=== PATIENT | female | born 1990 ===

== ENCOUNTER → 2018-09-27 | Outpatient (CLI) | payer MEDICAID ==
[~2018-09-27] MED LIST: INSU100V13 SQ; INSU100V14 SQ; LIRA0.6P SC
[2018-09-27 10:35] LABS: BASOPHILS # (AUTO) 0.03 x10^3/uL (0-0.1); BASOPHILS % (AUTO) 1 % (0-1); EOSINOPHILS # (AUTO) 0.07 x10^3/uL (0-0.4); EOSINOPHILS % (AUTO) 1 % (1-7); LYMPHOCYTES % (AUTO) 26 % (22-44); MD NO; MEAN CORPUSCULAR HEMOGLOBIN 27.2 pg (27.0-34.8); MEAN CORPUSCULAR HGB CONC 33.1 g/dL (32.4-35.8); MEAN CORPUSCULAR VOLUME 82.3 fL (80-100); MEAN PLATELET VOLUME 7.2 fL (7.4-10.4); MONOCYTES % (AUTO) 5 % (2-9); NEUTROPHILS # (AUTO) 4.89 x10^3/uL (1.8-6.8); NEUTROPHILS % (AUTO) 67 % (42-75); PLATELET COUNT 374 x10^3/uL (130-400); RED BLOOD COUNT 4.72 x10^6/uL (3.82-5.3); RED CELL DISTRIBUTION WIDTH 13.8 % (9.6-15.2)
[2018-09-27 10:47] LABS: CHLORIDE 105 mmol/L (98-107); INTERNATIONAL NORMALIZED RATIO 0.95 (0.93-1.1); PROTHROMBIN TIME 10.1 Seconds (9.6-11.5)
[2018-09-27 10:57] LABS: ALANINE AMINOTRANSFERASE 43 U/L (12-78); ALBUMIN 3.8 g/dL (3.4-5.0); ALKALINE PHOSPHATASE 76 U/L (45-117); ANION GAP 8 mmol/L (5-15); BILIRUBIN,TOTAL 0.3 mg/dL (0.2-1.0); CALCIUM 8.7 mg/dL (8.5-10.1); CREATININE 0.71 mg/dL (0.55-1.02); TOTAL PROTEIN 7.8 g/dL (6.4-8.2)
== END | disposition home or self-care (01) ==
LOC: STAR 09:40
PROVIDERS: ATTEND Specialist
DX: Z01.818 Encounter for other preprocedural examination (principal); N83.209 Unspecified ovarian cyst, unspecified side; R19.07 Generalized intra-abdominal and pelvic swelling, mass and lump
CPT/HCPCS: 36415; 80053; 84703; 85025; 85610; 85730; 86304; 93005

== ENCOUNTER 2018-10-02 05:54 | Day surgery (SDC) | payer MEDICAID ==
[~2018-10-02] VITALS: Ht 165.1 cm; Wt 76.7 kg
[2018-10-02 07:00] VITALS: BP 125/61
[2018-10-02] MEDS ORDERED: EPINEPHRINE 1 MG/ML, 1ML ONE (07:02)
[2018-10-02] MEDS ORDERED: BUPIVACAINE/PF 0.25% ONE (07:02)
[2018-10-02] MEDS ORDERED: MIDAZOLAM 1 MG/ML, 2ML ONE (07:24)
[2018-10-02] MEDS ORDERED: FENTANYL PF 250 MCG/5ML ONE (07:24)
[2018-10-02] MEDS ORDERED: ROCURONIUM 10MG/ML,5ML ONE (07:25)
[2018-10-02] MEDS ORDERED: SUCCINYLCHOLINE 20 MG/ML, 10ML ONE (07:25)
[2018-10-02] MEDS ORDERED: PROPOFOL 10 MG/ML, 20ML ONE (07:27)
[2018-10-02 07:30] LABS: HCG UR SG 1.016 (1.003-1.030)
[2018-10-02] MEDS ORDERED: ACETAMINOPHEN 500 MG TABLET PO ONE (07:30)
[2018-10-02] MEDS ORDERED: SCOPOLAMINE PATCH, 1.5MG PATCH.TD72 TD ONE (07:30)
[2018-10-02] MEDS ORDERED: ONDANSETRON 2MG/ML, 2ML ONE (07:54)
[2018-10-02] MEDS ORDERED: CEFAZOLIN 1,000 MG ONE (07:54)
[2018-10-02] MEDS ORDERED: GLYCOPYRROLATE 0.2MG/1ML, 5ML ONE (07:54)
[2018-10-02] MEDS ORDERED: DEXAMETHASONE 4 MG/ML, 1ML ONE (07:54)
[2018-10-02] MEDS ORDERED: KETOROLAC 30 MG/1 ML ONE (07:54)
[2018-10-02] MEDS ORDERED: NEOSTIGMINE 1 MG/ML, 10ML ONE (08:57)
[2018-10-02] MEDS ORDERED: ONDANSETRON 2MG/ML, 2ML IV PRN (09:00)
[2018-10-02] MEDS ORDERED: MORPHINE SULFATE 4 MG/ML, 1ML IVPush PRN (09:00)
[2018-10-02] MEDS ORDERED: OXYcodone 5 MG/5 ML ORAL.SOL UDC PO PRN (09:00)
[2018-10-02] MEDS ORDERED: MEPERIDINE/PF 25MG/0.5ML IVPush PRN (09:00)
[2018-10-02] MEDS ORDERED: hydrALAzine 20 MG/ML, 1ML IV PRN (09:00)
[2018-10-02] MEDS ORDERED: HALOPERIDOL 5 MG/ML IV PRN (09:00)
[2018-10-02] MEDS ORDERED: FENTANYL PF 100 MCG/2ML IV PRN (09:00)
[2018-10-02] MEDS ORDERED: LABETALOL 5MG/ML, 20ML IV PRN (09:00)
[2018-10-02] MEDS ORDERED: DIAZEPAM 5 MG/ML, 2ML IVPush PRN (09:00)
[2018-10-02] MEDS ORDERED: PROMETHAZINE 25 MG SUPP PR PRN (09:00)
[2018-10-02] MEDS ORDERED: ALBUTEROL SULFATE 2.5 MG/3 ML NPPB PRN (09:00)
[2018-10-02] MEDS ORDERED: MIDAZOLAM 1 MG/ML, 2ML IV PRN (09:00)
[2018-10-02] MEDS ORDERED: HYDROmorphone 2 MG/ML, 1ML IVPush PRN (09:00)
[2018-10-02] MEDS ORDERED: PROMETHAZINE 25 MG/ML, 1ML IM PRN (09:00)
[2018-10-02] MEDS ORDERED: ONDANSETRON ODT 8 MG PO PRN (09:00)
[2018-10-02] MEDS ORDERED: EPHEDRINE 50 MG/ML, 1ML IVPush PRN (09:00)
[2018-10-02] MEDS ORDERED: OXYcodone 5 MG/5 ML ORAL.SOL UDC ONE (09:14)
[2018-10-02] MEDS ORDERED: FENTANYL PF 100 MCG/2ML ONE (09:14)
== END 2018-10-02 11:20 | disposition home or self-care (01) ==
LOC: OUT 05:54
PROVIDERS: ATTEND Specialist
DX: D27.0 Benign neoplasm of right ovary (principal); I10 Essential (primary) hypertension; E11.9 Type 2 diabetes mellitus without complications; E66.9 Obesity, unspecified; Z68.28 Body mass index [BMI] 28.0-28.9, adult; Z79.84 Long term (current) use of oral hypoglycemic drugs
CPT/HCPCS: 58661; 81025; 82962; 88305; J0171; J0330; J0690; J1100; J1885; J2250; J2405; J2704; J2710; J3010; J3490